=== PATIENT | female | born 1970 | race Caucasian/White ===

== ENCOUNTER 2024-02-20 10:48 | Outpatient (REF) | payer OTHER, SELFPAY ==
[2024-02-20 15:01] LABS: Influenza A PCR NEGATIVE (Negative); Influenza B PCR NEGATIVE (Negative); Resp Syncy Virus RNA Qual PCR POSITIVE (Negative); SARS COV2 PCR INHOUSE NEGATIVE (Negative)
== END 2024-02-20 10:49 | disposition home or self-care (01) ==
LOC: HO.LNP 10:48
PROVIDERS: PCP Pediatrics; Visit Provider Nurse Practitioner Family
DX: J21.0 Acute bronchiolitis due to respiratory syncytial virus (principal); J02.9 Acute pharyngitis, unspecified; Z72.0 Tobacco use
CPT/HCPCS: 0241U; 87880; 99212

== ENCOUNTER 2024-02-20 10:48 | Outpatient (AMB) | payer OTHER, SELFPAY ==
--- NOTE | 2024-02-20 10:52 | MHC.OFFWIV ---
Intake Vital Signs 02/20/24 10:59 Height 5 ft 2 in Weight 207 lb BMI 37.9 BP 132/72 Blood Pressure Location Lt brachial Position Sitting Respiration 13 Pulse 79 Pulse Source Pulse Oximeter Temp 97.8 F Temp Source Oral Pulse Oximetry (%) 97 Oxygen Delivery Method Room Air Intake Visit Reasons: sore throat/stuffy nose Intake Note: Patient complaining of swollen throat, cough, post nasal drip, and abd px started last night. Patient daughter has rsv last week. Patient Tobacco Use Status: Current everyday Tobacco user Mexican Food Maker Required: No Allergies amoxicillin [From Augmentin] Allergy (Severe, Verified 02/20/24 11:05) Shortness of Breath clavulanic acid [From Augmentin] Allergy (Severe, Verified 02/20/24 11:05) Shortness of Breath propoxyphene [From DARVON] Allergy (Mild, Verified 02/20/24 11:05) INTOLERANCE Medication List - Last Reconciled 02/20/24 by Alice Pedraza, INSTRUCTOR [employer]- atorvastatin 40 mg PO DAILY hydroxyzine HCl 25 mg PO QID lorazepam 1 mg PO DAILY PRN mirtazapine 15 mg PO BEDTIME pantoprazole 40 mg PO DAILY venlafaxine ER 75 mg PO DAILY Do you need a note to return to daycare/school/sports/work: No HPI HPI Comments History of Present Illness Details History of Present Illness The patient is a 53-year-old female presenting with sore throat and postnasal drip that began last night. She reports being exposed to her daughter who had Respiratory Syncytial Virus (RSV) last week and COVID-19 the week prior. Her medical history includes a tendency to develop kidney stones, which she manages by monitoring her water intake. She experienced severe stomach pains for the past three days, which she associates with her history of kidney stones. Acknowledging a period of illness lasting three weeks, she noted a recent improvement in her general health until this morning when she found swallowing difficult due to throat swelling. The patient emphasizes her common, daily tobacco use and experiences lightheadedness frequently. Moreover, she mentions having undergone six major ear operations previously, with persistent issues in her left ear, although the symptoms are intermittent. She avoids using nasal sprays like Flonase due to aversion to their scent. No strep throat swab was performed prior to this visit, but she was informed that it is possible to contract strep throat even in the absence of tonsils. She reported using Tylenol for symptom relief, though it was ineffective. Additionally, she takes sleep medications, which she manages cautiously due to potential interactions with other medications. Physical Exam Awake alert NAD Sclera and conjunctiva clear bilat Nares clear, turbinates edematous bilat, no sinus tenderness with palpation bilat though sounds congested TM intact with mucous and scarring - pt reports several ear surgeries in her life MMM, pharynx + erythema, no exudate. Rapid strep negative. RRR LS CTAB dim throughout Plan - Perform Influenza, and RSV testing as discussed.. - Acknowledge the impact of tobacco use on respiratory symptoms and advise on cessation. - Confirm hydration to prevent kidney stone development in light of the history of recurrence. - Provide supportive care for sore throats including OTC options like throat lozenges or sprays. - Returned call notification process for positive test results, + RSV. Supportive care. Edu on reasons to seek addl care/ED level care. Patient was informed and verbally consented to the use of an ambient scribe for clinic note documentation during this visit. This note is constructed using voice recognition software. While every effort has been made to ensure accuracy in agricultural research technician, still errors may have been included Sometimes, these errors may affect the content or meaning of the given sentence . Total time spent caring for the patient today was 30 minutes. This includes time spent before the visit reviewing the chart, time spent during the visit, and time spent after the visit on documentation PFSH Social History Patient Tobacco Use Status: Current everyday Tobacco user Physical Exam Vital Signs: Last Vital Signs Temp 97.8 F 02/20/24 10:59 Pulse 79 02/20/24 10:59 Resp 13 02/20/24 10:59 BP 132/72 02/20/24 10:59 Pulse Ox 97 02/20/24 10:59 Oxygen Delivery Method Room Air 02/20/24 10:59 BMI result Body Mass Index 37.9 Results AMB Rapid Strep AMB Rapid Strep Negative Last Edit by Drake Benjamin MA on 02/20/24 11:21 Results Reviewed Results Reviewed: Laboratory Last Values Strep Scn Rapid Clinic Negative 02/20/24 11:11 Assessment & Plan Assessment & Plan (1) RSV (acute bronchiolitis due to respiratory syncytial virus): Code(s): J21.0 - Acute bronchiolitis due to respiratory syncytial virus (2) Tobacco use: Code(s): Z72.0 - Tobacco use Plan: Smoking Cessation How to Quit There are a lot of ways to quit smoking and many resources to help you. Family members, friends, and co-workers may be supportive or encouraging, but to be successful the desire and commitment to quit must be your own. Most people who have been able to successfully quit smoking made at least one unsuccessful attempt in the past. Try not to view past attempts to quit as failures, but rather as learning experiences. Stopping smoking or using smokeless tobacco is difficult, but anyone can do it. Know the symptoms to expect when you stop. Common symptoms include: ? An intense craving for nicotine ? Anxiety, tension, restlessness, frustration, or impatience ? Difficulty concentrating ? Drowsiness or trouble sleeping, as well as bad dreams and nightmares ? Drowsiness and trouble sleeping ? Headaches ? Increased appetite and weight gain ? Irritability or depression How severe your symptoms are depends on how long you smoked and how many cigarettes you smoked each day. Feel ready to quit? ? First and foremost, set a quit date and quit completely on that day. Before your quit date, you may begin reducing your cigarette use. But remember, there is no safe level of cigarette smoking. ? List the reasons why you want to quit. Include both short- and long-term benefits. ? Identify the times you are most likely to smoke. For example, do you tend to smoke when feeling stressed or down? When out at night with friends? While drinking coffee or alcohol? When bored? While driving? Right after a meal or sex? During a work break? While watching TV or playing cards? When you are with other smokers? ? Let all of your friends, family, and co-workers know of your plan to stop smoking and your quit date. Just being aware that they know what you're going through can be helpful, especially when you are grumpy. ? Get rid of all your cigarettes just before the quit date, and clean out anything that smells like smoke, such as clothes and furniture. Make a plan about what you will do instead of smoking at those times when you are most likely to smoke. ? Be as specific as possible. For example, drink tea instead of coffee -- tea may not trigger the desire for a cigarette. Or, take a walk when you feel stressed. ? Remove ashtrays and cigarettes from the car. Place pretzels or hard candies there instead. Pretend-smoke with a straw. ? Find activities that focus your hands and mind but are not taxing or fattening. Computer games, solitaire, knitting, sewing, and crossword puzzles may help. ? If you normally smoke after eating, find other ways to end a meal. Play a tape or CD, eat a piece of fruit, get up and make a phone call, or take a walk (a good distraction that also michele calories). Make other changes in your lifestyle. ? Change your daily schedule and habits. Eat at different times or eat several small meals instead of three large ones. Sit in a different chair or even a different room. ? Satisfy your oral habits by eating celery or other low-calorie snack, chewing sugarless gum, or sucking on a cinnamon stick. ? Go to public places and restaurants where smoking is prohibited or restricted. ? Eat regular meals and don't eat too much candy or sweet things. ? Get more exercise. Take walks or ride a bike. Exercise helps relieve the urge to smoke. Set short-term quitting goals and reward yourself when you meet them. ? Every day, put the money you normally spend on cigarettes in a jar. Then buy something pleasurable after a period of time. ? Try not to think about all the days ahead you will need to avoid smoking. Take it one day at a time. ? Even one puff or one cigarette will make your desire for more cigarettes even stronger. However, it is normal to make mistakes. So even if you have one cigarette, you don't need to take the next one. Other tips to help you quit smoking and stick to it: ? Enroll in a smoking cessation program (hospitals, health departments, community centers, and work sites often offer programs). Learn about self-hypnosis or other techniques. ? Ask your health care provider about prescription medications that are safe and appropriate for you. ? Find out about nicotine patches, gum, and sprays. The [place] [employer]'s web site -- www.cancer.org -- is an excellent resource for smokers who are trying to quit, and the [employer] [place] [employer] can help some smokers kick the habit. Above all, don't get discouraged if you aren't able to quit smoking the first time. Nicotine addiction is a hard habit to break. Try something different next time. Develop new strategies, and try again. Many people take several attempts to finally kick the habit. (3) Pharyngitis: Code(s): J02.9 - Acute pharyngitis, unspecified Qualifiers: Pharyngitis/tonsillitis etiology: unspecified etiology Qualified Code(s): J02.9 - Acute pharyngitis, unspecified Plan . Orders: Orders SARS-CoV2/FLU/RSV Today R09.89 - Other specified symptoms and signs involving the circulatory and respiratory systems AMB Rapid Strep Screen Today Z13.9 - Encounter for screening, unspecified Patient Instructions: RSV immunizations are recommended only for these groups: Adults ages 60 and older: Two RSV vaccines (Arexvy by [employer] and Abrysvo by [employer]) have been licensed by FDA and recommended by CDC for adults ages 60 and older, using shared clinical decision-making. women: One RSV vaccine (Abrysvo by [employer]) has been licensed and recommended during weeks 32 through 36 of to protect infants. Infants and some young children: An RSV preventive antibody has been licensed and recommended for infants and some young children. Respiratory syncytial virus (RSV) is recognized as one of the most common causes of childhood illness and is the most common cause of hospitalization in infants. It causes annual outbreaks of respiratory illnesses in all age groups. In most regions of the [place], RSV season starts in the fall and peaks in the winter, but the timing and severity of RSV season in a given community can vary from year to year. Healthcare providers should consider RSV in the differential diagnosis of patients with respiratory illness, particularly during the RSV season. For more information about recommended infection prevention and control practices in healthcare settings, see CDC?s 2007 Guideline for Isolation Precautions: Preventing Transmission of Infectious Agents in Healthcare Settings. CDC recommends RSV vaccines to protect adults ages 60 and older from severe RSV, using shared clinical decision-making. To protect infants from severe RSV, CDC recommends an RSV vaccine for people who are 32?36 weeks or a monoclonal antibody given to the baby after . A healthcare provider?s recommendation is one of the most important factors influencing a patient?s choice to accept a new prevention product or vaccine. Vaccines for Older Adults New RSV vaccines are available for adults 60 and older. CDC recommends that adults 60 and older may receive a single dose of RSV vaccine, using shared clinical decision-making. The decision to vaccinate an individual patient should be based on a discussion between the healthcare provider and the patient. It may be informed by the patient?s risk of severe RSV disease and their characteristics, values, and preferences; the healthcare provider?s clinical discretion; and the characteristics of the vaccine. Healthcare providers should be aware of underlying conditions that may increase the risk of severe RSV illness, and who might be most likely to benefit from these new vaccines. RSV vaccine is recommended as a single dose. Studies are ongoing to determine whether (and if so, when) revaccination may be needed over time. Immunizations to Protect Infants There are two safe and effective immunizations to prevent RSV lower respiratory tract infection in infants. Either a maternal vaccination or a monoclonal antibody is recommended, but administration of both is not needed for most infants. Maternal Vaccines for People A new RSV vaccine is recommended for people who are 32?36 weeks with seasonal administration during October?February in most of the continental [place]. In jurisdictions with seasonality that differs from most of the [facility] (e.g., [place], jurisdictions with tropical climates), providers should follow state, local, or territorial guidance on timing of administration. This vaccine provides protection against severe RSV illness to the recipient?s baby for up to 6 months of age. However, the ?s protection will wane over time. Healthcare providers of people should provide information on both maternal vaccines and infant monoclonal antibody products and consider patient preferences when determining whether to vaccinate the patient or to not vaccinate and rely on administration of nirsevimab to the infant after . Monoclonal Antibody Products for Infants and Young Children Nirsevimab (Beyfortus) is a monoclonal antibody product that can protect infants and some young children from severe RSV disease. It is recommended for: Infants under 8 months old born during ? or entering ? their first RSV season (typically fall through spring) if their mother did not receive an RSV vaccine, it is unknown if their mother received an RSV vaccine, or the mother received a vaccine but the infant was born <14 days after vaccination Nirsevimab can be considered in rare circumstances even though the mother received an RSV vaccine when, per the clinical judgment of the healthcare provider, the potential incremental benefit of administration is warranted: people who may not mount an adequate immune response to vaccination (e.g., people with immunocompromising conditions) or have conditions associated with reduced transplacental antibody transfer (e.g., people living with HIV infection) Infants who have had cardiopulmonary bypass leading to loss of RSV antibodies Infants with substantially increased risk for severe RSV disease (e.g., hemodynamically significant congenital heart disease, intensive care admission, and requiring oxygen at discharge) Some children between the ages of 8 and 19 months who are at increased risk of severe RSV disease before their second RSV season. These include: Children who have chronic lung disease of prematurity who required medical support (chronic corticosteroid therapy, diuretic therapy, or supplemental oxygen) any time during the 6-month period before the start of the second RSV season Children with severe immunocompromise Children with cystic fibrosis who have severe disease and children Nirsevimab is administered by intramuscular injection. It is long-acting, providing protection for at least 5 months (the average length of one season), and only one dose is recommended for an RSV season. However, immune protection will wane over time. Another monoclonal antibody, Palivizumab (Synagis), is recommended by the [place] [employer] (AAP) for administration to infants and young children who are at increased risk of severe RSV disease based on gestational age and certain underlying medical conditions. It is given in monthly intramuscular injections during RSV season. AAP has provided considerations for the 2022?2023 RSV season with regard to palivizumab versus nirsevimab administration for high-risk infants during the same RSV season. Clinical Description and Diagnosis In Infants and Young Children RSV infection can cause a variety of respiratory illnesses and symptoms in infants and young children. It most commonly causes a cold-like illness but can also cause lower respiratory infections like bronchiolitis and pneumonia. Two to three percent of infants with RSV infection may need to be hospitalized. Severe disease most commonly occurs in very young infants. Additionally, children with any of the following underlying conditions are considered at increased risk: Premature infants Infants, especially those 6 months and younger Children younger than 2 years old with chronic lung disease or congenital heart disease Children with suppressed or weakened immune systems Children who have neuromuscular disorders or a congenital anomaly, including those who have difficulty swallowing or clearing mucus secretions Children with severe cystic fibrosis Infants and young children with RSV infection may have rhinorrhea and a decrease in appetite before any other symptoms appear. Cough usually develops 1 to 3 days later. Soon after the cough develops, sneezing, fever, and wheezing may occur. Symptoms in very young infants can include irritability, decreased activity, and/or apnea. Most otherwise healthy infants and young children who are infected with RSV do not need hospitalization. Those who are hospitalized may require oxygen, rehydration, and/or mechanical ventilation. Most improve with supportive care and are discharged in a few days. In Older Adults and Adults with Chronic Medical Conditions Adults who get infected with RSV usually have mild or no symptoms. Symptoms are usually consistent with an upper respiratory tract infection, which can include rhinorrhea, pharyngitis, cough, headache, fatigue, and fever. Disease usually lasts less than 5 days. Some adults, however, may have more severe symptoms consistent with a lower respiratory tract infection, such as pneumonia. Epidemiologic evidence indicates that people 60 and older who are at highest risk of severe RSV disease include those with any of the following chronic conditions: Lung disease (such as chronic obstructive pulmonary disease [COPD] and asthma) Chronic cardiovascular diseases (such as congestive heart failure and coronary artery disease) Diabetes mellitus Neurologic conditions Kidney disorders Liver disorders Hematologic disorders Immune compromise Other underlying conditions that a healthcare provider determines might increase the risk for severe respiratory disease Other underlying factors that the provider determines might increase the risk of severe RSV-associated respiratory illness may include the following: Frailty Advanced age Residence in a [place] care facility or other long-term care facility Other underlying factors that a healthcare provider determines might increase the risk for severe respiratory disease RSV can sometimes also lead to exacerbation of serious conditions such as: Asthma Chronic obstructive pulmonary disease (COPD) Congestive heart failure Clinical Laboratory Testing Clinical symptoms of RSV are nonspecific and can overlap with other viral respiratory infections, as well as some bacterial infections. Several types of laboratory tests are available for confirming RSV infection. These tests may be performed on upper and lower respiratory specimens. The most commonly used types of RSV clinical laboratory tests are Real-time reverse agricultural research technician-polymerase chain reaction (luggage liner-PCR), which is more sensitive than culture and antigen testing Antigen testing, which is sensitive in children but less sensitive in adults Less commonly used tests include: Viral culture Serology, which is usually only used for research and surveillance studies Some tests can differentiate between RSV subtypes (A and B), but the clinical significance of these subtypes is unclear. Consult your laboratorian for information on what type of respiratory specimen is most appropriate to use. RSV Testing For Infants and Young Children Both luggage liner-PCR and antigen detection tests are effective methods for diagnosing RSV infection in infants and young children. The sensitivity of RSV antigen detection tests generally ranges from 80% to 90% in this age group. Healthcare providers should consult experienced laboratorians for more information on interpretation of results. RSV Testing For Older Children, Adolescents, and Adults Healthcare providers should use highly sensitive luggage liner-PCR assays when testing older children and adults for RSV. luggage liner-PCR assays are now commercially available for RSV. The sensitivity of these assays often exceeds the sensitivity of virus isolation and antigen detection methods. Antigen tests are not sensitive for older children and adults because they may have lower viral loads in their respiratory specimens. Healthcare providers should consult experienced laboratorians for more information on interpretation of results. Coding Level of Care Code Est Pt Level 4 (19103) Diagnoses RSV (acute bronchiolitis due to respiratory syncytial virus) J21.0 Tobacco use Z72.0 Pharyngitis, unspecified etiology J02.9 Pharyngitis/tonsillitis etiology: unspecified etiology
[2024-02-20 10:59] VITALS: BP 132/72; PULSE 79; RESP 13; TEMP 36.6; O2SAT 97; BMI 37.9
== END 2024-02-20 11:36 | disposition home or self-care (01) ==
LOC: HO.HMCWIW 10:48
PROVIDERS: PCP Pediatrics; Visit Provider Nurse Practitioner Family
DX: J21.0 Acute bronchiolitis due to respiratory syncytial virus (principal); Z72.0 Tobacco use; J02.9 Acute pharyngitis, unspecified; Z13.9 Encounter for screening, unspecified